=== PATIENT | female | born 1945 | race Caucasian/White ===

== ENCOUNTER 2018-10-01 13:43 | Outpatient (CLI) | payer MEDICARE, OTHER ==
--- NOTE | 2018-10-01 14:17 | RAD ---
F3 views left foot: 10/01/2018 COMPARISON: None HISTORY: Fall, lateral foot pain FINDINGS: No acute fracture or evidence of dislocation seen. Scattered degenerative changes are seen involving the metatarsal-phalangeal joints, the distal interphalangeal joints, and the proximal inter phalangeal joints. There is mild degenerative change involving the midfoot with dorsal mild osteophyt e formation. There is enthesophyte formation at the insertion of the Achilles tendon and origin of th e plantar neurosis. IMPRESSION: No acute osseous abnormality.
== END 2018-10-01 13:44 | disposition home or self-care (01) ==
LOC: SCSRAD 13:43
PROVIDERS: ATTEND Family Medicine
DX: W19.XXXS Unspecified fall, sequela (principal)
CPT/HCPCS: 36415; 80053; 80061; 82043; 83036; 84439; 84443; 85025; 87521

== ENCOUNTER 2018-10-09 12:50 | Outpatient (CLI) | payer MEDICARE | END 2018-10-09 12:51 | disposition home or self-care (01) | LOC: ULT 12:50 | PROVIDERS: ATTEND Family Medicine | DX: I51.7 Cardiomegaly (principal); I07.1 Rheumatic tricuspid insufficiency | CPT/HCPCS: 93306 ==